=== PATIENT | male | born 1990 | race African-American/Black ===

== ENCOUNTER 2020-07-13 18:20 | Emergency (ER) | payer SELFPAY ==
[~2020-07-13] VITALS: Ht 172.7 cm; Wt 59.1 kg
[~2020-07-13 18:20] MED LIST: ALBU17AE26
[2020-07-13] MEDS ORDERED: IBUPROFEN 600MG TABLET PO ONE (19:30)
[2020-07-13 21:22] LABS: BASOPHILS % 0.6 % (0.0-2.0); HEMATOCRIT. 43.3 % (42.0-52.0); HEMOGLOBIN. 14.9 g/dL (14.0-18.0); LYMPHOCYTES % 34.8 % (20.0-50.0); MEAN CORPUSCULAR VOLUME 90.2 fL (80.0-94.0); MEAN PLATELET VOLUME 6.8 fl (7.4-10.4); MONOCYTES % 11.4 % (2.0-8.0); NEUTROPHILS % 44.2 % (40.0-76.0); PLATELET 273 x1000/uL (130-400)
[2020-07-13 21:30] LABS: CHLORIDE 106 mEq/L (98-107)
[2020-07-13 22:35] VITALS: BP 117/61
== END 2020-07-13 22:38 | disposition home or self-care (01) ==
LOC: ER 18:52
DX: R06.02 Shortness of breath (principal); R07.89 Other chest pain; J45.909 Unspecified asthma, uncomplicated; F12.10 Cannabis abuse, uncomplicated; Z20.822 Contact with and (suspected) exposure to COVID-19
CPT/HCPCS: 36415; 71045; 80053; 83880; 84484; 85025; 93005; 99285; C9803; U0003